=== PATIENT | male | born 1975 | race African-American/Black ===

== ENCOUNTER 2016-05-23 11:16 | Emergency (ER) | payer OTHER ==
[~2016-05-23] VITALS: Ht 170.2 cm; Wt 59.0 kg
[~2016-05-23 11:16] MED LIST: BACTRIM DS TAB1 EACH PO; IBUPROFEN800 M1 PO; KEFLEX500 M1 PO; ROBITUSSIN W/CO10 ML PO; ZITHROMAX Z-PA250 M1 PO
[2016-05-23 11:19] VITALS: BP 116/80
--- NOTE | 2016-05-23 11:27 | ED GI/GU/ABDOMINAL COMPLAINT ---
History of Present Illness General Chief Complaint: Male Genitourinary Problems Stated Complaint: PT IS FOR GROIN PAIN Source: patient, old records Exam Limitations: no limitations Vital Signs & Intake/Output Vital Signs & Intake/Output Vital Signs Date Time Temp Pulse Resp B/P Pulse O2 O2 Flow FiO2 Ox Delivery Rate 05/23 1235 Room Air Room Air 05/23 1119 97.1 82 18 116/80 98 Room Air Allergies Coded Allergies: NO KNOWN ALLERGIES (05/22/11) Reconcile Medications Cephalexin (Keflex) 500 MG CAPSULE 1 CAP PO 4 TIMES/DAY CELLULITIS/ LYMPHANGITIS 1 PILL FOUR TIMES A DAY X 10 DAYS Ibuprofen 800 MG TABLET 1 TAB PO TID PRN PAIN Sulfamethoxazole/Trimethoprim (Bactrim Ds Tablet) 800 MG-160 MG TABLET 1 TAB PO BID CELLULITIS/LYMPHADENITIS Triage Note: PT STATES THAT HE HAS BEEN HAVING GROIN PAIN AND SCROTUM PAIN SINCE 89, PAIN WAS SUDDEN AND STARTED AFTER HE VOIDED Triage Nurses Notes Reviewed? yes HPI: Patient is a 41 year old male presents complaining of right testicular and inguinal pain. Pain onset after having a bowel movement at approximately 0900 this morning. Similar episodes previously and patient was diagnosed with lymph nodes and infection to the area. Pain was severe, has been gradually improving, currently mild. Denies fevers, dysuria, penile discharge, abdominal pain, nausea, vomiting. Past History Travel History Traveled to [place] past 21 day No Medical History Any Pertinent Medical History? see below for history Neurological: migraine EENT: NONE Cardiovascular: NONE Respiratory: NONE Gastrointestinal: NONE Hepatic: NONE Renal: NONE Musculoskeletal: NONE Psychiatric: NONE Endocrine: NONE Blood Disorders: NONE Cancer(s): NONE LEATHER FLESHER/Reproductive: NONE Surgical History Surgical History: N Psychosocial History What is your primary language Cambodian Tobacco Use: Current Daily Use Daily Tobacco Use Amount/Type: => 5 Cigarettes daily ETOH Use: denies use Illicit Drug Use: denies illicit drug use Family History Hx Contributory? No Review of Systems Review of Systems Constitutional: Denies: chills, fever. EENTM: Reports: no symptoms. Respiratory: Reports: no symptoms. Cardiovascular: Reports: no symptoms. GI: Reports: no symptoms. Genitourinary: Reports: see HPI. Musculoskeletal: Reports: no symptoms. Skin: Reports: no symptoms. Neurological/Psychological: Reports: no symptoms. Hematologic/Endocrine: Reports: no symptoms. Immunologic/Allergic: Reports: no symptoms. Physical Exam Physical Exam General Appearance: well developed/nourished, alert, awake Head: atraumatic, normal appearance Eyes: Bilateral: normal appearance, PERRL, EOMI. Ears, Nose, Throat, Mouth: hearing grossly normal, moist mucous membrane Neck: normal inspection, supple, full range of motion Respiratory: normal breath sounds, no respiratory distress, lungs clear Cardiovascular: regular rate/rhythm Gastrointestinal: soft, non-tender Male Genitals: no testicular tenderness. Mild right epididymal tenderness. normal cremasteric reflex Back: normal inspection, normal range of motion, no vertebral tenderness Extremities: normal range of motion Neurologic/Psych: no motor/sensory deficits, awake, alert, oriented x 3, normal gait, normal mood/affect Skin: intact, normal color, warm/dry Core Measures ACS in differential dx? No Severe Sepsis Present: No Septic Shock Present: No Progress Differential Diagnosis: UTI, epididymitis, orchitis, hernia, testicular torsion, sexual transmitted disease, lymphadenopathy, muscle strain, cellulitis, abscess Plan of Care: Orders Procedure Date/time Status CULTURE,URINE 05/23 1134 Active URINALYSIS 05/23 1134 Complete CBC WITHOUT DIFFERENTIAL 05/23 1134 Complete BASIC METABOLIC PANEL 05/23 1134 Complete Laboratory Tests 05/23/16 1230: Anion Gap 8, Estimated GFR > 60, BUN/Creatinine Ratio 12.2, Glucose 81, Calcium 9.5, CBC w Diff NO MAN DIFF REQ, RBC 4.24 L, MCV 88.5, MCH 29.5, RDW 14.1, MPV 7.2 L, Gran % 49.3, Lymphocytes % 43.0, Monocytes % 5.3, Eosinophils % 1.4, Basophils % 1.0, Absolute Granulocytes 3.1, Absolute Lymphocytes 2.7, Absolute Monocytes 0.3, Absolute Eosinophils 0.1, Absolute Basophils 0.1, PUBS MCHC 33.3 05/23/16 1200: Urinalysis LIGHT H, Urine Color YEL, Urine Clarity CLEAR, Urine pH 6.0, Ur Specific [place] 1.020, Urine Protein TRACE H, Urine Ketones NEG, Urine Nitrite NEG, Urine Bilirubin NEG, Urine Urobilinogen 0.2, Ur Leukocyte Esterase NEG, Ur Microscopic SEDIMENT EXAMINED, Urine WBC RARE, Ur Epithelial Cells FEW, Urine Bacteria FEW H, Urine Mucus FEW, Urine Hemoglobin NEG, Urine Glucose NEG Microbiology 03/16 1200 URINE ROUT: Urine Culture - RECD Results of labs, urinalysis, ultrasound discussed with patient. Patient appears stable for discharge. (YAYA GAMBLE,MIKALA) Diagnostic Imaging: Viewed by Me: Ultrasound. Discussed w/RAD: Ultrasound. Radiology Impression: PATIENT: KACI DEE PRESENT AGE: 41 PATIENT ACCOUNT NO: [id number] : 76 LOCATION: [facility] ORDERING PHYSICIAN: MIKALA GAMBLE SERVICE DATE: 05/23/16 EXAM TYPE: US - US-SUPERFICIAL IMAGING EXTREMI; US-TESTICULAR EXAMINATION: SCROTAL/TESTICULAR ULTRASOUND RIGHT GROIN ULTRASOUND CLINICAL INFORMATION: Right testicular/ inguinal pain, rule out testicular torsion. Right inguinal pain with history of lymphadenopathy. COMPARISON: Right groin ultrasound 03/08/2016. TECHNIQUE: Scrotal/testicular ultrasound was performed with grayscale and Doppler techniques. Right groin ultrasound was performed with grayscale and color Doppler techniques. FINDINGS: The right testicle measures 3.7 x 1.9 x 3.3 cm for a volume of 16 mL. The right testicle appears normal in echogenicity. No focal mass lesion. Normal duplex Doppler signal with no evidence of torsion. The right epididymis measures 1.0 x 0.8 x 0.9 cm. No epididymal mass or cyst. The left testicle measures 4.1 x 1.9 x 2.7 cm for a volume of 15 mL. The left testicle appears normal in echogenicity. No focal mass lesion. Normal duplex Doppler signal with no evidence of torsion. The left epididymis measures 1.0 x 0.8 x 0.9 cm. No epididymal mass or cyst. Mildly enlarged right groin lymph nodes measuring 1.3 an 1.5 cm in long axis transverse dimension. No focal fluid collection. These have decreased in size when compared to prior. IMPRESSION: No evidence of testicular torsion. Mildly enlarged right groin lymph nodes have decreased in size when compared to prior. No focal fluid collection. DICTATED BY : ADRIANA PLATA MD DATE/TIME DICTATED:05/23/161307 MEDICATION TECHNICIAN:TAMIKO DATE/TIME TRANSCRIBED:05/23/161307 CONFIDENTIAL, DO NOT COPY WITHOUT APPROPRIATE AUTHORIZATION. <Electronically signed in Other Vendor System> SIGNED BY: ADRIANA PLATA MD 05/23/16 1317 Initial ED EKG: none Departure Departure Time of Disposition: 1325 Disposition: HOME OR SELF CARE Condition: Stable Clinical Impression Primary Impression: Inguinal lymphadenitis Referrals: PHI BANEGAS,LUPE LAMAS MD,YAIR RASHID MD,RANDAL Additional Instructions: Follow up with Dr. Baptiste(primary doctor) for further evaluation. Also follow up with Dr. Rashid(urologist) and Dr. Lamas(surgeon) for further evaluation of your pain and the swollen lymph nodes. Return to the ER if fevers or worsening of symptoms. Departure Forms: Customer Survey General Discharge Information
[2016-05-23 12:58] LABS: ABSOLUTE BASOPHIL COUNT 0.1 /CUMM (0.0-0.2); ABSOLUTE EOSINOPHIL COUNT 0.1 /CUMM (0.0-0.7); ABSOLUTE GRANULOCYTE CT 3.1 /CUMM (1.4-6.5); ABSOLUTE LYMPH COUNT 2.7 /CUMM (1.2-3.4); ABSOLUTE MONOCYTE COUNT 0.3 /CUMM (0.10-0.60); EOSINOPHIL % 1.4 % (0-5); GRANULOCYTE % 49.3 % (42.2-75.2); HEMATOCRIT 37.6 % (42-52); MEAN CORPUSCULAR HGB 29.5 PG (27.0-31.0); MEAN CORPUSCULAR HGB CONC 33.3 G/DL (33.0-37.0); MEAN CORPUSCULAR VOLUME 88.5 FL (80.0-94.0); MEAN PLATELET VOLUME 7.2 FL (7.4-10.4); PLATELET COUNT 257 /CUMM (130-400); RBC DISTRIBUTION WIDTH 14.1 % (11.5-14.5); RED BLOOD CELL CT 4.24 /CUMM (4.70-6.10); WHITE BLOOD CELL COUNT 6.4 /CUMM (4.8-10.8)
--- NOTE | 2016-05-23 13:17 | ULTRASOUND REPORT ---
EXAMINATION: SCROTAL/TESTICULAR ULTRASOUND RIGHT GROIN ULTRASOUND CLINICAL INFORMATION: Right testicular/inguinal pain, rule out testicular torsion. Right inguinal pain with history of lymphadenopathy. COMPARISON: Right groin ultrasound 03/08/2016. TECHNIQUE: Scrotal/testicular ultrasound was performed with grayscale and Doppler techniques. Right groin ultrasound was performed with grayscale and color Doppler techniques. FINDINGS: The right testicle measures 3.7 x 1.9 x 3.3 cm for a volume of 16 mL. The right testicle appears normal in echogenicity. No focal mass lesion. Normal duplex Doppler signal with no evidence of torsion. The right epididymis measures 1.0 x 0.8 x 0.9 cm. No epididymal mass or cyst. The left testicle measures 4.1 x 1.9 x 2.7 cm for a volume of 15 mL. The left testicle appears normal in echogenicity. No focal mass lesion. Normal duplex Doppler signal with no evidence of torsion. The left epididymis measures 1.0 x 0.8 x 0.9 cm. No epididymal mass or cyst. Mildly enlarged right groin lymph nodes measuring 1.3 an 1.5 cm in long axis transverse dimension. No focal fluid collection. These have decreased in size when compared to prior. IMPRESSION: No evidence of testicular torsion. Mildly enlarged right groin lymph nodes have decreased in size when compared to prior. No focal fluid collection.
== END 2016-05-23 13:36 ==
LOC: ERH 11:16
PROVIDERS: Physician Assistant
DX: I88.9 Nonspecific lymphadenitis, unspecified (principal); N50.811 Right testicular pain
CPT/HCPCS: 76881; 81001; 87086